=== PATIENT | male | born 1985 | race Two or more races ===

== ENCOUNTER 2017-12-24 19:19 | Emergency (ER) | payer MEDICAID ==
[~2017-12-24] VITALS: Ht 162.6 cm; Wt 77.2 kg
[2017-12-24] MEDS ORDERED: HYDROcodone/acetaminophen 10/325mg tab PO ONE (20:20)
[2017-12-24] MEDS ORDERED: HYDR-565 PO (20:35)
[2017-12-24] MEDS ORDERED: IBUP-1984 PO (20:35)
[2017-12-24 20:42] VITALS: BP 120/65
== END 2017-12-24 20:43 | disposition home or self-care (01) ==
LOC: ER 19:19
DX: S20.211A Contusion of right front wall of thorax, initial encounter (principal); S70.01XA Contusion of right hip, initial encounter; W18.2XXA Fall in (into) shower or empty bathtub, initial encounter; Y93.89 Activity, other specified; Y92.89 Other specified places as the place of occurrence of the external cause; Y99.8 Other external cause status
CPT/HCPCS: 71045; 99284

== ENCOUNTER 2020-02-05 20:18 | Emergency (ER) | payer MEDICAID ==
[~2020-02-05] VITALS: Ht 167.6 cm; Wt 84.5 kg
[~2020-02-05 20:18] MED LIST: LIDOcaine 1% W/epiNEPHrine 1:200,000 10ml vial ONE
[2020-02-05 20:20] VITALS: BP 182/94
[2020-02-05] MEDS ORDERED: HYDROcodone/acetaminophen 5mg/325mg tablet PO ONE (23:05)
[2020-02-05] MEDS ORDERED: HYDR-3965 PO (23:54)
[2020-02-05] MEDS ORDERED: TETanus/Pertussis (Acell)/Diphther VAC/PF (Tdap-Adult) 0.5ml syringe IMVAC ONE (23:55)
== END 2020-02-06 00:12 | disposition home or self-care (01) ==
LOC: ER 20:18
DX: S61.412A Laceration without foreign body of left hand, initial encounter (principal); M79.89 Other specified soft tissue disorders; Z72.89 Other problems related to lifestyle; Z79.899 Other long term (current) drug therapy; X58.XXXA Exposure to other specified factors, initial encounter; Y93.89 Activity, other specified; Y92.89 Other specified places as the place of occurrence of the external cause; Y99.8 Other external cause status
CPT/HCPCS: 12002; 73130; 90471; 90715; 99283